=== PATIENT | male | born 1975 | race Two or more races ===

== ENCOUNTER 2021-07-29 08:12 | Emergency (ER) | payer MEDICAID, OTHER ==
[~2021-07-29] VITALS: Ht 167.6 cm; Wt 90.7 kg
[2021-07-29 08:18] VITALS: BP 120/82
[2021-07-29 10:16] LABS: Hematocrit 49.5 % (41.0-53.0); Hemoglobin 16.8 g/dL (13.5-17.5); Mean Corpuscular Hemoglobin 30.2 pg (28.0-32.0); Mean Corpuscular Volume 88.7 fL (80.0-100.0); Red Blood Cells 5.58 10^6/uL (4.5-5.90); Red Cell Distribution Width 13.4 % (11.8-14.3); White Blood Cell 9.2 10^3/uL (4.4-10.8)
[2021-07-29 10:26] LABS: Basophils % (manual) 0 (0.0-2.0); Blast Cells 0; Metamyelocytes % 0; Myelocytes % 0; Promyelocytes % 0; Reactive Lymphocytes 0
[2021-07-29 10:34] LABS: Albumin 3.2 g/dL (3.4-5.0); Calcium 9.6 mg/dL (8.5-10.1); Potassium 4.1 mmol/L (3.5-5.1)
[2021-07-29 10:38] LABS: BUN/Creatinine Ratio 7.8; Bilirubin, Total 0.6 mg/dL (0.2-1.0); Total Protein 8.6 g/dL (6.4-8.2)
[2021-07-29 11:24] LABS: Band Neutrophils % (manual) 3; Eosinophils % (manual) 1 (0-7); Lymphocytes % (manual) 31 (10.0-50.0); Monocytes % (manual) 9 (0-12)
== END 2021-07-29 15:10 | disposition left against medical advice (07) ==
LOC: ER 08:12
DX: N20.0 Calculus of kidney (principal); E44.1 Mild protein-calorie malnutrition; Z68.32 Body mass index [BMI] 32.0-32.9, adult
CPT/HCPCS: 36415; 80053; 85007; 85027